=== PATIENT | female | born 1990 | race Caucasian/White ===

== ENCOUNTER 2019-02-23 07:47 | Day surgery (SDC) | payer OTHER ==
[2019-02-20 15:10] VITALS: BMI 23.5
[~2019-02-23] VITALS: Ht 170.2 cm; Wt 70.5 kg
[2019-02-23] VITALS (13 sets, daily range): BP systolic 113–141; BP diastolic 62–82; PULSE 72–111; RESP 10–39; Ht 170.2 cm; Wt 70.5 kg
[~2019-02-23 07:47] MED LIST: IBUP-1542 PO; IBUP-1561 PO
[2019-02-23] MEDS ORDERED: NORG1TAB65 PO (08:17)
[2019-02-23] MEDS ORDERED: LACTATED RINGER'S 1,000 ML IV SCH (09:00)
--- NOTE | 2019-02-23 09:16 | PREAC ---
Date/Time of Note Date/Time of Note DATE: 02/23/19 TIME: 09:15 Anesthesia Eval and Record Evaluation Time Pre-Procedure Interview DATE: 02/23/19 TIME: 09:15 Age 28 Sex female NPO: 8 hrs Preoperative diagnosis Chronic tonsillitis Planned procedure Bilateral tonsillectomy Past Medical History Past Medical History: None Surgery & Anesthesia Issues No known issue Meds Anticoagulation: No Beta Tatiana within 24 hr: No Reason Beta Tatiana not given: Pt. not on B-Tatiana Reported Medications Norgestimate-Ethinyl Estradiol (Norgestimate-Ethinyl Estradiol) 0.035-0.18 Mg Tablet, 1 TAB PO DAILY, TAB 02/23/19 Discontinued Scripts Ibuprofen* (Motrin*) 400 Mg Tab, 400 MG PO Q6H PRN for PAIN AND OR ELEVATED TEMP, #30 TAB Prov:NICKIE BRISENO PA-C 03/27/16 Ibuprofen* (Motrin*) 600 Mg Tab, 600 MG PO Q6, #20 TAB Prov:MONIKA DORADO PA-C 06/27/15 Current Medications Lactated Ringer's 1,000 ml @ 25 mls/hr Q24H IV ; Start 02/23/19 at 09:00 Meds reviewed: Yes Allergies Coded Allergies: Penicillins (Verified Allergy, Unknown, 02/23/19) Allergies Reviewed: Yes Labs/Studies Labs Reviewed: Reviewed by anesthesiologist test: Negative Pre-procedure Exam Last vitals Vital Signs Date Temp Pulse Resp B/P (MAP) Pulse Ox O2 O2 Flow FiO2 Time Delivery Rate 02/23/19 98.1 72 16 114/67 99 Room Air 08:39 (83) Airway: Adequate mouth opening Mallampati: Mallampati I Teeth: Normal Lung: Normal Heart: Normal ASA Physical Status ASA physical status: 1 Emergency: None Planned Anesthetic General/MAC: ETT Planned Pain Management Parenteral pain med Pre-operative Attestations Prior to commencing anesthesia and surgery, the patient was re-evaluated, there was verification of: *The patient's identity *The results of appropriate recent lab work and preoperative vital signs *The above evaluation not changing prior to induction *Anesthetic plan, risk benefits, alternative and complications discussed with patient/family; questions answered; patient/family understands, accepts and wishes to proceed. MAU DORADO MD Feb 23, 2019 09:16
[2019-02-23] MEDS ORDERED: LIDOCAINE 1%/EPI 30 ML INJ ONE (09:20)
[2019-02-23] MEDS ORDERED: NEOSTIGMINE 3 MG/3 ML SYRINGE ONE (09:30)
[2019-02-23] MEDS ORDERED: PROPOFOL 20 ML ONE (09:30)
[2019-02-23] MEDS ORDERED: GLYCOPYRROLATE 0.4 MG INJ ONE (09:30)
[2019-02-23] MEDS ORDERED: LIDOCAINE 2% (SDV) 5 ML INJ ONE (09:30)
[2019-02-23] MEDS ORDERED: SUCCINYLCHOLINE CHLORIDE 100 MG/5 ML SYG IV ONE (09:30)
[2019-02-23] MEDS ORDERED: ROCURONIUM 50 MG INJ ONE (09:30)
[2019-02-23] MEDS ORDERED: MEPERIDINE 100 MG INJ ONE (09:30)
--- NOTE | 2019-02-23 09:33 | HPN ---
Date/Time of Note Date/Time of Note DATE: 02/23/19 TIME: 09:33 Interval H&P Admission Note Pt. seen H&P reviewed: No system changes BUNNY JANG M.D. Feb 23, 2019 09:33
[2019-02-23] MEDS ORDERED: BUPIVACAINE 0.25%/EPI (SDV) 30 ML INJ ONE (09:48)
[2019-02-23] MEDS ORDERED: TRIAMCINOLONE ACET 40 MG/ML INJ ONE (09:48)
[2019-02-23] MEDS ORDERED: CLINDAMYCIN 900 MG/D5W (PMX) 50 ML IVPB ONE (10:00)
[2019-02-23] MEDS ORDERED: DEXAMETHASONE 4 MG/ML 5 ML INJ ONE (10:01)
[2019-02-23] MEDS ORDERED: ONDANSETRON 4 MG INJ ONE (10:08)
[2019-02-23] MEDS ORDERED: OXYCODONE/ACETAMINOPHEN (5/325) TAB PO PRN ×2 (10:30)
[2019-02-23] MEDS ORDERED: METOCLOPRAMIDE 10 MG INJ IV PRN (10:30)
[2019-02-23] MEDS ORDERED: MEPERIDINE 25 MG INJ IV PRN (10:30)
[2019-02-23] MEDS ORDERED: HYDROmorphONE 1 MG/5 ML IV SYRINGE IV PRN ×3 (10:30)
[2019-02-23] MEDS ORDERED: MIDAZOLAM 1 MG/ML 2 ML INJ IV PRN (10:30)
[2019-02-23] MEDS ORDERED: ONDANSETRON 4 MG INJ IV PRN (10:30)
[2019-02-23] MEDS ORDERED: DIPHENHYDRAMINE 50 MG INJ IV PRN (10:30)
[2019-02-23] MEDS ORDERED: FENTAnyl 50 MCG/ML VIAL IV PRN ×3 (10:30)
--- NOTE | 2019-02-23 10:52 | OPR ---
Date/Time of Note Date/Time of Note DATE: 02/23/19 TIME: 10:49 Operative Report Procedure Date: Feb 23, 2019 Preoperative Diagnosis 1. CHRONIC TONSILLITIS. 2. TONSILLAR TISSUE HYPERTROPHY. 3. ACUTE REPEAT TONSILLITIS EPISODES Postoperative Diagnosis SAME. Operation/Procedure Performed 1.BILATERAL TONSILLECTOMY. Surgeon see signature line Customer Supply Chain Analyst NONE. Anesthesia Type: general (WITH OT TUBE INTUBATION AND 24 CC MARCAINE1/4% WITH EPI 1:200,000 SOLN. ) Estimated Blood Loss: 10 - 50 ml's Transfusion none Specimen 1. LEFT AND RIGHT TONSILS SEPARATE TISSUES. Grafts/Implants none Tubes/Drains NONE. Complications none Pt Condition Post Procedure: stable Disposition: PACU Indications TO PREVENT REPEAT TONSIL INFECTIONS. Procedure Description SEE DICTATED OPERATIVE REPORT. BUNNY JANG M.D. Feb 23, 2019 10:52
--- NOTE | 2019-02-23 10:55 | PDOCDIS ---
Discharge Instructions DIAGNOSIS Discharge Diagnosis 1. CHRONIC TONSILLITIS. 2. TONSILLAR TISSUE HYPERTROPHY. 3. ACUTE REPEAT TONSILLITIS EPISODES CONDITION [id number] Patient Condition: [id number] Good HOME CARE INSTRUCTIONS: [id number] Diet Instructions: Zizfq6g NO HOT OR SPICY FOODS. DRINK LOTS OF FLUIDS. ACTIVITY: [id number] Activity Restrictions: Djprq1c Slowly Increase Activity Rest between Activity Avoid heavy lifting Avoid Heavy Housework [id number] Bathing Restrictions: Tywgq3v Tub Bath FOLLOW UP/APPOINTMENTS Follow-up Plan MY OFFICE IN 10 TO 14 DAYS. SCHOOL/WORK RELEASE May return to School/Work on: Mar 10, 2019 May return to School/Work with: No Restrictions BUNNY JANG M.D. Feb 23, 2019 10:55
--- NOTE | 2019-02-23 11:51 | PAC ---
Date/Time of Note Date/Time of Note DATE: 02/23/19 TIME: 11:50 Post-Anesthesia Notes Post-Anesthesia Note Last documented vital signs Vital Signs Date Temp Pulse Resp B/P (MAP) Pulse Ox O2 O2 Flow FiO2 Time Delivery Rate 02/23/19 98.1 72 16 114/67 99 Room Air 08:39 (83) Activity: WNL Respiratory function: WNL Cardiovascular function: WNL Mental status: Baseline Pain reasonably controlled: Yes Hydration appropriate: Yes Nausea/Vomiting absent: Yes Comments BT: 98.1 MAU DORADO MD Feb 23, 2019 11:51
--- NOTE | 2019-02-23 13:33 | OPR ---
DATE OF OPERATION: 02/23/2019 SURGEON: Alek Martinez MD PREOPERATIVE DIAGNOSES: 1. Chronic tonsillitis. 2. Tonsillar tissue hypertrophy. 3. History of repeat acute tonsillitis episodes. POSTOPERATIVE DIAGNOSES: 1. Chronic tonsillitis. 2. Tonsillar tissue hypertrophy. 3. History of repeat acute tonsillitis episodes. OPERATION PERFORMED: Bilateral tonsillectomy. ESTIMATED BLOOD LOSS: Less than 30 mL. COMPLICATIONS: None. SPECIMENS SENT TO LAB: Left and right tonsils for gross and microscopic evaluation, sent separately. ANESTHETIC USED: General anesthesia with orotracheal tube intubation with an oral Diana type tube with a cuff. The patient also received 24 mL of Marcaine 0.25% with epinephrine 1:200,000 solution using a spinal 23-gauge needle. The patient also had 1 mL of Kenalog 40 mg injected into soft palate just above the uvula. The patient was also given IV Ancef and Decadron before the case was begun. FINDINGS DURING PROCEDURE: Bilaterally enlarged tonsils with scarring of the tonsillar fossa. No si gns of malignancies or tumors seen during the procedure. The patient left the operating room in good and satisfactory condition. INDICATIONS: Ms. Cassie Taveras is a 28-year-old female who has a history of repeat acute tonsillit is episodes. The patient has been treated with multiple antibiotics only to have recurrent acute ton sillitis episodes. Because the patient had over 7 episodes in 1 year, she is being considered for bi lateral tonsillectomy procedure as indicated. Risks, benefits, and alternatives were explained zay whittington to Ms. Taveras. They include infection, bleeding, scar formation, possible damage to dental or gingival structures as well as possible damage to lingual nerve which could result in tongue numbnes s. She also understands the risks of general and local anesthetic agents and their possible risks an d reactions. She has signed consent once her questions were answered. FINDINGS: During procedure bilaterally enlarged tonsils with scarring of the tonsillar fossa. There is a minimal amount of adenoid tissue and the palate appeared to be normal. PROCEDURE FOLLOWS: The patient taken to the operating room, placed on the surgical table in supin e position, made comfortable by the anesthesiologist, Dr. Sanchez. The patient had EKG, saturation monit oring and blood pressure cuff applied. The patient had a previously started IV in the right dorsum o f hand for IV medicine administration purposes. The patient was then given IV sedation and placed un vahid general anesthesia. She was then successfully orotracheally intubated with orotracheal tube with out any complications. At this point, the tube was taped to the lower lip in the midline as the eyes were taped for protection. At this point, the vital signs noted to be stable as the patient's table was unlocked and rotated 90 degrees to the left. At this point, the table was then relocked as head of table was extended to give better access to the oral cavity. The patient was draped out in usual sterile fashion using a split sheet. At this point, a brief time-out with patient identification an d procedures entertained, and all were in agreement. The patient then had a McIvor mouth gag g ently inserted into the oral cavity to help expose the oral contents and stabilize the orotracheal tu be. Once the McIvor mouth gag was opened, digital palpation of the palate did not reveal a submucous cleft and visually there was no bifid uvula present. At this point, the left and right tonsil was t hen injected in the peritonsillar region with a 25-gauge 1-/2 needle using Marcaine solution. Appro ximately 20 mL injected to the left and right tonsillar region in preparation for dissection. The le ft and right tonsils were then removed as sponge packing placed inside the tonsillar fossa to cauteri ze bleeding points. As the hemostasis was achieved, 1 mL of Kenalog 40 mg injected to the soft palat e just above the uvula. Electrocautery suction was then used to cauterize bleeding points in the ton sillar fossa are created until hemostasis was achieved. At this point, copious amounts of normal aubrey ine solution and bacitracin added was then used to irrigate the nasal cavity, nasopharynx and hypopha rynx in preparation for extubation. The 2 red Piper catheters were then removed and small bleedin g point superior pole of tonsillar fossa were cauterized with electrocautery suction Bovie. Copious amounts of normal saline solution and bacitracin was then used to irrigate the nasopharynx, hypophary nx and oral cavity in preparation for extubation. A suction catheter was placed inside the stomach a nd esophagus to remove ingested tissue products and secretions. At this point, the tonsillar fossae were then reinspected and found not to have any further bleeding. A second injection of Marcaine 0.2 5% with epinephrine 1:100,000 was injected in the tonsillar fossa using the same 23-gauge spinal need le. At this point, the patient was then reversed from general anesthetic agents, extubated in the op erating room, taken to recovery room, is currently doing well, is expected to be discharged home unle ss postoperative complications develop. Dictated By: ALEK VENTURA/JOSE M Conf#: [id number] DID#: [id number]
== END 2019-02-23 12:14 | disposition home or self-care (01) ==
LOC: SDS 07:47
PROVIDERS: ATTEND Otolaryngology Otolaryngology/Facial Plastic Surgery
DX: J35.01 Chronic tonsillitis (principal); J35.1 Hypertrophy of tonsils; Z88.0 Allergy status to penicillin
CPT/HCPCS: 42826; 84703; 88304; J1100; J2175; J2405; Z7512; Z7610; J2710